=== PATIENT | female | born 1980 | race African-American/Black ===

== ENCOUNTER 2016-05-07 13:15 | Inpatient (IN) | payer OTHER ==
[2016-05-07] MEDS ORDERED: DEXTROSE 5%-LACTATED RINGERS 1,000 ML IV SCH (15:00)
[2016-05-07] MEDS ORDERED: DINOPROSTONE 10 MG VAGINAL SUPPOSITORY VG ONE (15:00)
[2016-05-07] MEDS ORDERED: BUTORPHANOL TARTRATE 1 MG/ML VIAL IVPB ONE (15:00)
[2016-05-07 15:08] VITALS: BMI 27.6
[2016-05-07] MEDS ORDERED: ONDANSETRON 4 MG/2 ML VIAL IVPB PRN (15:39)
[2016-05-07] MEDS ORDERED: D5W-LR W/ 20 UNITS OXYTOCIN 1,000 ML IV SCH (15:45)
--- NOTE | 2016-05-07 15:51 | HP ---
Past Medical History - Primary Care Physician PCP:: Paz Martell - Admission Chief Complaint: Rh sensitization at 37 weeks for delivery as per MFM History of Present Illness: 36 Yo edc 05/26/16 ega 37.2 weeks AMA, rh sen admitted for induction of labor GBS positive History Source: Patient - Past Medical History ...: 4 ...Para: 3 ...Term: 3 ...: 0 ...Spon : 0 ...Induced : 0 ...Multiple Gestation: 0 ...LMP: 08/19/15 ... Weeks Gestation by Dates: 37.2 ...EDC by Dates: 05/26/16 ...EDC by Sono: 05/26/16 - Past Surgical History Past Surgical History: Yes: None Hx Myomectomy: No Hx Transabdominal Cerclage: No - Smoking History Smoking history: Never smoked Have you smoked in the past 12 months: No - Alcohol/Substance Use Hx Alcohol Use: No History of Substance Use: reports: None - Social History Usual Living Arrangement: Yes: With Spouse History of Recent Travel: Yes Home Medications - Allergies Allergies/Adverse Reactions: Allergies Allergy/AdvReac Type Severity Reaction Status Date / Time No Known Allergies Allergy Verified 05/07/16 14:32 - Home Medications Home Medications: Ambulatory Orders Ferrous Sulfate [Feosol] 325 mg PO DAILY 05/07/16 Vit/Iron Fumarate/FA [ Tablet] 1 each PO DAILY 05/07/16 Review of Systems - Review of Systems Constitutional: reports: No Symptoms Eyes: reports: No Symptoms HENT: reports: No Symptoms Neck: reports: No Symptoms Cardiovascular: reports: No Symptoms Respiratory: reports: No Symptoms Gastrointestinal: reports: No Symptoms Genitourinary: reports: No Symptoms Breasts: reports: No Symptoms Reported Musculoskeletal: reports: No Symptoms Integumentary: reports: No Symptoms Neurological: reports: No Symptoms Endocrine: reports: No Symptoms Hematology/Lymphatic: reports: No Symptoms Psychiatric: reports: No Symptoms Physical Exam - Maternity Vital Signs: Vital Signs Temperature 97.7 F 05/07/16 13:30 Pulse Rate 117 H 05/07/16 13:30 Respiratory Rate 18 05/07/16 13:30 Blood Pressure 117/56 05/07/16 13:30 O2 Sat by Pulse Oximetry (%) Constitutional: Yes: Well Nourished, No Distress Neck: Yes: WNL Cardiovascular: Yes: WNL, Regular Rate and Rhythm Lungs: Clear to auscultation Breast(s): Yes: WNL - Abdominal Exam/OB Fundal Height: 37 Number of Fetuses: Single Presentation: Vertex Contractions: No Heart Rate Location: [facility] Category: I Decelerations: None - Vaginal Exam/OB Dilatation (cm): 1-2 cm Effacement (%): 70 Amniotic Membrane Status: Intact Presentation: Vertex/Position Station: -2 - Physical Exam Musculoskeletal: Yes: WNL Extremities: Yes: WNL Edema: No Integumentary: Yes: WNL Hemorrhage Risk Assessment - Risk Factors Medium Risk Factors: Yes: None High Risk Factors: Yes: None Risk Score: 1 Risk Level: Medium Risk Problem List - Problems (1) Rh sensitization Code(s): O36.0990 - MATERNAL CARE FOR OTH RHESUS ISOIMMUN, UNSP TRIMESTER, UNSP Assessment/Plan IUP at 37.2 weeks high risk preg rh sensitation GBS positive Plan cervidil IV abs
[2016-05-07 16:00] LABS: BASOPHIL 0.7 % (0-2.0); EOSINOPHIL 1.4 % (0-4.5); MCH 29.7 pg (25.7-33.7); MCHC 33.2 g/dl (32.0-36.0); MEAN CELL VOLUME 89.2 fl (80-96); NEUTROPHILS 66.3 % (42.8-82.8); PLATELET COUNT 264 K/MM3 (134-434); WHITE BLOOD COUNT 6.9 K/mm3 (4.0-10.0)
[2016-05-07] MEDS ORDERED: TUBERCULIN PPD 5 TU/0.1ML SYRINGE (IN PATIENT USE ONLY) ID ONE (16:00)
[2016-05-07 16:24] LABS: CALCIUM 9.3 mg/dL (8.5-10.1); CREATININE 0.6 mg/dL (0.55-1.02)
[2016-05-07 16:28] LABS: INR 1.09 (0.82-1.09)
[2016-05-07 16:30] LABS: ACTIVATED PTT 29.7 SECONDS (26.9-34.4)
[2016-05-07] MEDS ORDERED: AMPICILLIN - 100 ML IVPB ONE (17:00)
[2016-05-07] MEDS ORDERED: PROMETHAZINE HCL 25 MG/1 ML VIAL IVPB ONE (19:30)
--- NOTE | 2016-05-07 20:10 | PN ---
Ante-Partal Exam - Subjective Subjective: Pt with c/o pain Vital Signs: Vital Signs Temperature 98.1 F 05/07/16 18:00 Pulse Rate 87 05/07/16 19:57 Respiratory Rate 18 05/07/16 19:57 Blood Pressure 115/69 05/07/16 19:57 O2 Sat by Pulse Oximetry (%) Bleeding: No Headache: No Visual changes: No Right upper quadrant pain: No - Contractions Contractions: Yes Regularity: Regular Intensity: Moderate Monitor Mode: External - Exam during Labor Heart Rate: 150 Category: I Monitor Accelerations: Present Monitor Decelerations: None Exam: Vaginal Dilatation (cm): 3 cm Effacement (%): 80 Amniotic Membrane Status: Intact Presentation: Vertex Station: -2 - Intrapartum Hemorrhage Risk Risk Score: 1 Risk Level: Medium Risk - Assessment/Plan Assessment/Plan: iup at 37 week rh sensitization AMA GBS positive Plan continue cervidil
[2016-05-07] MEDS: AMPICILLIN - 100 ML IVPB SCH (22:00)
[2016-05-07] MEDS ORDERED: ELECTROLYTE-148 SOLN 500 ML IV SCH (22:15)
[2016-05-07] MEDS ORDERED: ELECTROLYTE-148 SOLN 500 ML IV ONE (22:45)
[2016-05-07] MEDS ORDERED: ELECTROLYTE-148 SOLN 1,000 ML IV SCH (23:15)
[2016-05-07] MEDS ORDERED: FENTANYL/BUPIVACAINE/NS/PF - PCEA - 50 ML DISP.SYRIN EP SCH (23:45)
[2016-05-08] MEDS ORDERED: OXYTOCIN 15 UNITS/ LR 250 ML 250 ML IVPB SCH (00:45)
--- NOTE | 2016-05-08 00:45 | PN ---
Ante-Partal Exam - Subjective Subjective: Pt s/p epidural Pt feeling better Vital Signs: Vital Signs Temperature 97.8 F 05/08/16 00:00 Pulse Rate 91 H 05/08/16 00:15 Respiratory Rate 20 05/08/16 00:15 Blood Pressure 95/48 05/08/16 00:15 O2 Sat by Pulse Oximetry (%) 100 05/08/16 00:15 Bleeding: No Headache: No Visual changes: No Right upper quadrant pain: No - Contractions Contractions: Yes Regularity: Coupling Intensity: Mild Monitor Mode: External - Exam during Labor Variability: Minimal Heart Rate Location: [facility] Category: I Monitor Accelerations: Present Monitor Decelerations: None Exam: Vaginal Dilatation (cm): 3 cm Effacement (%): 80 Amniotic Membrane Status: Ruptured Amniotic Fluid: Blood Stained Presentation: Vertex Station: -2 - Assessment/Plan Assessment/Plan: iup at 37 weeks rh sensitization induction plan pitocin anticipate vaginal delivery
[2016-05-08] MEDS: AMPICILLIN - 100 ML IVPB SCH ×2 (01:30→05:34)
[2016-05-08] MEDS: D5W-LR W/ 20 UNITS OXYTOCIN 1,000 ML IV SCH ×2 (03:00→07:39)
[2016-05-08] MEDS ORDERED: BENZOCAINE 28 GM HEMORRHOIDAL OINTMENT TP PRN (03:25)
[2016-05-08] MEDS ORDERED: WITCH HAZEL 50% (TUCKS) 40 PAD/JAR PAD TP PRN (03:25)
[2016-05-08] MEDS ORDERED: BISACODYL 10 MG SUPP.RECT RC PRN (03:25)
[2016-05-08] MEDS ORDERED: METHYLERGONOVINE MALEATE 0.2 MG/1 ML AMP IM PRN (03:25)
[2016-05-08] MEDS ORDERED: BENZOCAINE 20% 57 GM BOTTLE TP PRN (03:25)
--- NOTE | 2016-05-08 03:28 | PN ---
Delivery - Delivery Vaginal Delivery: No Problems (Live female delivered in OA position Nuchal x 1 perineum intact 6lbs 3 oz) Episiotomy/Laceration: None EBL (cc): 250 (Mirena iud placed without complications) Delivery, Single - Stages of Labor Placenta: Yes: Spontaneous - Condition of Infant Infant Gender: Female Position: OA - [place] Feeding Plan Initial Plan: Elected not to breastfeed exclusively throughout hospitalization
[2016-05-08 03:39] LABS: ARTERIAL BLD GAS O2 SATURATION 58.2 % (90-98.9); ARTERIAL BLOOD GAS BASE EXCESS 0.2 meq/l (-2-2)
[2016-05-08 03:41] LABS: ARTERIAL BLOOD GAS HCO3 26.5 meq/L (22-26); ARTERIAL BLOOD GAS PO2 28.6 mmHg (80-100)
[2016-05-08 03:42] LABS: ARTERIAL BLOOD GAS pH 7.33 (7.35-7.45)
[2016-05-08 03:45] LABS: VENOUS BLOOD GAS HCO3 24.8 meq/L (22-29); VENOUS PH 7.38 (7.31-7.41)
[2016-05-08] MEDS: IBUPROFEN 600 MG TABLET (FP) PO PRN ×3 (07:37→20:59)
[2016-05-08] MEDS: ACETAMINOPHEN 325 MG TABLET (FP) PO PRN ×3 (07:38→20:59)
[2016-05-08 08:41] LABS: BASOPHIL 0.4 % (0-2.0); EOSINOPHIL 0.7 % (0-4.5); MCH 29.4 pg (25.7-33.7); MCHC 33.1 g/dl (32.0-36.0); MEAN CELL VOLUME 88.9 fl (80-96); NEUTROPHILS 73.6 % (42.8-82.8); PLATELET COUNT 241 K/MM3 (134-434); WHITE BLOOD COUNT 10.6 K/mm3 (4.0-10.0)
[2016-05-08 08:53] LABS: INR 1.1 (0.82-1.09); PROTHROMBIN TIME (PATIENT) 12.1 SEC (9.98-11.88)
[2016-05-08 09:25] LABS: CREATININE 0.6 mg/dL (0.55-1.02)
[2016-05-09 08:52] LABS: BASOPHIL 0.7 % (0-2.0); EOSINOPHIL 2.8 % (0-4.5); MCH 29.6 pg (25.7-33.7); MCHC 33.1 g/dl (32.0-36.0); MEAN CELL VOLUME 89.5 fl (80-96); MEAN PLT VOLUME 9.3 fl (7.5-11.1); PLATELET COUNT 197 K/MM3 (134-434); WHITE BLOOD COUNT 7.7 K/mm3 (4.0-10.0)
[2016-05-09] MEDS: ACETAMINOPHEN 325 MG TABLET (FP) PO PRN ×2 (09:03→18:08)
[2016-05-09] MEDS: IBUPROFEN 600 MG TABLET (FP) PO PRN ×2 (09:04→18:07)
[2016-05-09] MEDS ORDERED: INFLUENZA VACCINE 45 MCG/0.5 ML (MDV 16-17) IM ONE (10:00)
[2016-05-09] MEDS ORDERED: VACCINE 60 MCG/0.5 ML (P/F DISP.SYRIN 16-17) IM ONE (10:00)
--- NOTE | 2016-05-09 14:11 | PN ---
Post Note - Post Date of Delivery: 05/08/16 Vital Signs: Vital Signs - 24 hr 05/08/16 05/08/16 05/09/16 18:00 22:00 02:00 Temperature 99.1 F 98.0 F 98.1 F Pulse Rate 67 82 61 Respiratory 20 18 18 Rate Blood Pressure 116/74 121/71 129/67 05/09/16 10:00 Temperature 98.3 F Pulse Rate 82 Respiratory 20 Rate Blood Pressure 113/70 Labs: Laboratory Results - last 24 hr 05/07/16 05/08/16 05/09/16 15:20 08:15 07:50 WBC 7.7 RBC 3.35 L Hgb 9.9 L Hct 29.9 L MCV 89.5 MCHC 33.1 RDW 14.0 Plt Count 197 MPV 9.3 Neutrophils % 52.0 D Lymphocytes % 35.2 D Monocytes % 9.3 Eosinophils % 2.8 D Basophils % 0.7 RPR Titer Nonreactive Nonreactive - Subjective Subjective: No Complaints - Objective Afebrile: Yes Breast: Not engorged Abdomen: Soft, Non-tender Uterus: Fundus firm, Non-tender Vagina: Scant lochia Extremities: Non-tender - Assessment/Plan (1) Rh sensitization Assessment: S/P Normal Plan: Routine Care
[2016-05-09] MEDS ORDERED: SENNOSIDES/DOCUSATE COMBO (SENNA PLUS) TABLET (UD) PO PRN (22:00)
[2016-05-10] MEDS: ACETAMINOPHEN 325 MG TABLET (FP) PO PRN (01:03)
[2016-05-10] MEDS: IBUPROFEN 600 MG TABLET (FP) PO PRN (01:04)
[2016-05-10 09:39] VITALS: BP 114/64; PULSE 61; TEMP 97.7
--- NOTE | 2016-05-10 11:36 | DS ---
Physical Exam-FRUIT II FARMWORKER Vital Signs: Vital Signs Temperature 97.7 F 05/10/16 09:38 Pulse Rate 61 05/10/16 09:38 Respiratory Rate 20 05/10/16 09:38 Blood Pressure 114/64 05/10/16 09:38 O2 Sat by Pulse Oximetry (%) 100 05/08/16 04:00 Constitutional: Yes: Well Nourished, No Distress Gastrointestinal: Yes: WNL, Normal Bowel Sounds, Soft ....Post : Yes: Uterus firm, Uterus non-tender Neurological: Yes: WNL, Alert, Oriented Labs: CBC, BMP 05/09/16 07:50 05/08/16 08:15 Delivery - Delivery Vaginal Delivery: No Problems (Live female infant delivered in OA position Nuchal x 1 perineum intact 6lbs 3 oz) Type of Anesthesia: Epidural Episiotomy/Laceration: None EBL (cc): 250 (Mirena iud placed without complications) Delivery, Single - Stages of Labor Date 1st Stage Initiatied: 05/07/16 Time 1st Stage Initiated: 19:00 Date 2nd Stage Initiated: 05/08/16 Time 2nd Stage Initiated: 02:30 Date of Delivery: 05/08/16 Time of Delivery: 02:57 Time Placenta Delivered: 03:00 Placenta: Yes: Spontaneous - 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 - 1 Minute Total Score: 8 5 Minutes Total Score: 9 - [place] Feeding Plan Initial Plan: Elected not to breastfeed exclusively throughout hospitalization Discharge Summary Reason For Visit: CERVICAL INDUCTION Current Active Problems Rh sensitization (Acute) Procedures: Principal: normal vaginal delivery Hospital Course: unremarkable Condition: Good - Instructions Diet, Activity, Other Instructions: Physical activity Resume your normal everyday activity as tolerated no heavy lifting or exercise until seen by your surgeon. You may walk unlimited deena of and climb stairs. You may resume driving the car when you feel safe and comfortable behind the wheel. No sexual activity as instructed. Wound care If you have a bandage, leave it on, and keep dry for 48-72 hours. After that time discard the outer bandage. If they are tapes on the skin under the out of bandage leave them in place. They will peel off in the next 7 to 10 days. Do Not Peel them off. You may shower the day after surgery. If there are tapes present on the skin, you may shower over them. Diet There are no dietary restrictions. Eat healthy, high-fiber foods. Drink 6 to 8 glasses of liquid each day. This will assist in keeping your bowels are regular. Pain management You may take Tylenol or acetaminophen or Ibuprofen (for example, Motrin, Advil etc.) from my pain prescription medication is ordered should be taken as prescribed for moderate to severe pain. Call MD for any of the following: Severe pain not relieved by medication Fever of 101 or higher Excessive bleeding or drainage on dressing Inability to urinate Referrals: Paz Martell MD [Staff Physician] - Disposition: HOME - Home Medications Comprehensive Discharge Medication List: Ambulatory Orders Ferrous Sulfate [Feosol] 325 mg PO DAILY 05/07/16 Vit/Iron Fumarate/FA [ Tablet] 1 each PO DAILY 05/07/16 Ibuprofen [Motrin -] 600 mg PO QID PRN #28 tablet 05/10/16
== END 2016-05-10 14:15 | disposition home or self-care (01) | DRG 560 ==
LOC: JLDR 13:15 → J3W 05-08 04:55
PROVIDERS: ADMIT Obstetrics & Gynecology; ATTEND Obstetrics & Gynecology
PROC: 10E0XZZ Delivery of Products of Conception, External Approach (ICD-10-PCS; principal; 2016-05-08)
DX: O09.523 Supervision of elderly multigravida, third trimester (principal); Z22.330 Carrier of Group B streptococcus; Z3A.37 37 weeks gestation of pregnancy; O36.0930 Maternal care for other rhesus isoimmunization, third trimester, not applicable or unspecified; Z37.0 Single live birth
CPT/HCPCS: 36415; 36600; 59409; 80048; 82803; 85025; 85461; 85610; 85730; 86593; 86762; 86850; 86870; 86900; 86901; 86902; 87340

== ENCOUNTER 2017-06-30 16:58 | Emergency (ER) | payer OTHER ==
[2017-06-30 17:22] VITALS: BP 103/61; PULSE 66; TEMP 98.1; BMI 22.8
--- NOTE | 2017-06-30 17:24 | PDOC ---
Rapid Medical Evaluation Time Seen by Provider: 06/30/17 17:19 Medical Evaluation: Allergies Allergy/AdvReac Type Severity Reaction Status Date / Time No Known Allergies Allergy Verified 05/07/16 14:32 06/30/17 17:19 The patient presents with a chief complaint of: Neck pain for 2-3 days. Feels like her neck is swollen. States it hurts to move her neck side to side. I have performed a brief in-person evaluation of this patient; Pertinent physical exam findings: ambulatory, in no respiratory distress. (+) LAD R cervical chain. Decreased ROM of neck I have ordered the following: Rapid strep The patient will proceed to the ED for further evaluation.
--- NOTE | 2017-06-30 18:33 | PDOC ---
History of Present Illness - General Chief Complaint: Head/Neck problem Stated Complaint: NECK PAIN Time Seen by Provider: 06/30/17 17:19 History Source: Patient Exam Limitations: No Limitations - History of Present Illness Initial Comments: 06/30/17 18:36 Patient came for evaluation of sore throat pain for a few days. Denies fever, denies URI symptoms, no one else at home is sick. Is a hairdresser. States with approximately one and half years ago, was noted to have hyperthyroid enlarged thyroid. Was evaluated by "across a street" and was told that her numbers were normal. Did not have any follow-up. States since that time has had intermittent throat pain and now noticed an increasingly enlarged neck and glands. Denies recent weight loss or gain, denies any here issue, states menses Had never been normal 06/30/17 18:36 Timing/Duration: unsure Modifying Factors: improves with: other Associated Symptoms: reports: denies symptoms, malaise. denies: chest pain, cough, fever/chills, headaches Past History - Travel Traveled outside of the country in the last 30 days: No Close contact w/someone who was outside of country & ill: No - Past Medical History Allergies/Adverse Reactions: Allergies Allergy/AdvReac Type Severity Reaction Status Date / Time No Known Allergies Allergy Verified 06/30/17 17:19 Home Medications: Ambulatory Orders NK [No Known Home Medication] 06/30/17 Asthma: No Cancer: No Cardiac Disorders: No COPD: No Diabetes: No HTN: No Seizures: No Thyroid Disease: No Other medical history: DENIES. - Reproductive History (#): 3 Para: 3 Cervical CA: No Dysfunctional Uterine Bleeding: No Ectopic : No Endometrial CA: No Polycystic Ovaries: No Therapeutic (s) & number: No Tubal Ligation: No Spontaneous : 0 - Suicide/Smoking/Psychosocial Hx Smoking History: Never smoked Have you smoked in the past 12 months: No Hx Alcohol Use: No Drug/Substance Use Hx: No Hx Substance Use Treatment: No Review of Systems - Review of Systems Able to Perform ROS?: Yes Is the patient limited Malay proficient: Yes Constitutional: Yes: Symptoms Reported, See HPI, Malaise. No: Fever, Loss of Appetite Integumentary: Yes: Symptoms Reported Neurological: Yes: See HPI. No: Symptoms reported, Headache All Other Systems: Reviewed and Negative *Physical Exam - Vital Signs Last Vital Signs Temp Pulse Resp BP Pulse Ox 98.1 F 66 17 103/61 100 06/30/17 17:19 06/30/17 17:19 06/30/17 17:19 06/30/17 17:19 06/30/17 17:19 - Physical Exam General Appearance: Yes: Nourished, Appropriately Dressed, Apparent Distress, Mild Distress HEENT: positive: [place], TMs Normal, Pharynx Normal Neck: positive: Tender (rest, swelling, exudate. Tonsils are not enlarged), Supple, Tender lateral (patient has grossly enlarged thyroid gland with palpable bruit, left aspect is also enlarged but not as tender as right side. No palpable nodules) Respiratory/Chest: positive: Lungs Clear, Normal Breath Sounds Gastrointestinal/Abdominal: positive: Soft. negative: Tender Extremity: positive: Normal Capillary Refill, Normal Inspection Integumentary: positive: Normal Color, Dry, Warm, Pale ED Treatment Course - LABORATORY CBC & Chemistry Diagram: 06/30/17 18:30 06/30/17 18:30 - ADDITIONAL ORDERS Additional order review: 06/30/17 17:35 Group A Strep Rapid Antigen - Final Throat *DC/Admit/Observation/Transfer Diagnosis at time of Disposition: Thyroid dysfunction - Discharge Dispostion Disposition: HOME Condition at time of disposition: Stable Admit: No - Referrals Referrals: Denice Pollard MD [Staff Physician] - - Patient Instructions Printed Discharge Instructions: DI for Hypothyroidism Additional Instructions: Call and make appointment for private physician Recommend evaluation by supervisor felting - Post Discharge Activity Forms/Work/School Notes: Back to Work
[2017-06-30] MEDS ORDERED: IBUPROFEN 600 MG TABLET (FP) PO ONE ×2 (18:35→18:37)
[2017-06-30 18:43] LABS: BASO % 1.2 % (0-2.0); HEMATOCRIT 31.4 % (32.4-45.2); HEMOGLOBIN 10.5 GM/dL (10.7-15.3); LYMPH % 38.9 % (8-40); MCH 29.6 pg (25.7-33.7); MCHC 33.6 g/dl (32.0-36.0); MEAN CELL VOLUME 88.2 fl (80-96); MEAN PLT VOLUME 8.6 fl (7.5-11.1); MONO % 9.6 % (3.8-10.2); NEUT % 46.3 % (42.8-82.8); PLATELET COUNT 346 K/MM3 (134-434); RBC 3.56 M/mm3 (3.60-5.2); RDW 13.5 % (11.6-15.6); WHITE BLOOD COUNT 5.5 K/mm3 (4.0-10.0)
[2017-06-30 19:12] LABS: ALBUMIN 3.7 g/dl (3.4-5.0); ANION GAP 4 (8-16); BILIRUBIN,TOTAL 0.2 mg/dL (0.2-1.0); BLOOD UREA NITROGEN 10 mg/dL (7-18); CALCIUM 8.9 mg/dL (8.5-10.1); CHLORIDE 106 mmol/L (98-107); CO2 29 mmol/L (21-32); CREATININE 0.6 mg/dL (0.55-1.02); GLUCOSE,RANDOM 87 mg/dL (74-106); POTASSIUM 4.2 mmol/L (3.5-5.1); SGOT/AST 10 U/L (15-37); SGPT/ALT 12 U/L (12-78); SODIUM 139 mmol/L (136-145); TOT PROT 7.3 g/dl (6.4-8.2)
[2017-06-30 19:21] LABS: ALK PHOS 49 U/L (45-117)
== END 2017-06-30 19:48 | disposition home or self-care (01) ==
LOC: JERFT 16:58
DX: E04.9 Nontoxic goiter, unspecified (principal)
CPT/HCPCS: 36415; 80053; 84436; 84443; 84479; 85025; 87070; 87430; 99281-25

== ENCOUNTER 2018-05-10 13:20 | Emergency (ER) | payer OTHER ==
[2018-05-10 14:11] VITALS: BP 120/73; PULSE 72; TEMP 98; BMI 25.8
[2018-05-10] MEDS ORDERED: ACETAMINOPHEN/CAFFEINE/BUTALBITAL 1 TAB PO ONE (15:52)
--- NOTE | 2018-05-10 15:52 | PDOC ---
History of Present Illness - General Chief Complaint: Headache Stated Complaint: HEADACHE Time Seen by Provider: 05/10/18 15:40 History Source: Patient Exam Limitations: Clinical Condition - History of Present Illness Initial Comments: 05/10/18 16:00 Patient with no significant past medical history present with complaining of left-sided headache, pressure behind left ear , nasal congestion and left eye which is intermittent. Patient reported popping sensation left ear. Patient denies dizziness, blurry vision, change in vision, lightheadedness or photosensitivity patient denies spinning sensation. Patient also reported occasional cramps in left upper extremity and lower extremity for 3 days. Denies nausea or vomiting. Denies any other symptoms 05/10/18 16:03 Timing/Duration: reports: waxing and waning, other (2 days) Past History - Past Medical History Allergies/Adverse Reactions: Allergies Allergy/AdvReac Type Severity Reaction Status Date / Time No Known Allergies Allergy Verified 05/10/18 14:08 Home Medications: Ambulatory Orders Butalb/Acetaminophen/Caffeine [Fioricet 50-300-40 mg Capsule] 1 each PO Q6H PRN #20 capsule 05/10/[address] [place] 2 spray NS BID PRN #1 spray 05/10/18 Methylprednisolone [Medrol Dose Dejon] 4 mg PO ASDIR #21 tablet 05/10/18 Asthma: No Cancer: No Cardiac Disorders: No COPD: No Diabetes: No HTN: No Seizures: No Thyroid Disease: Yes - Reproductive History (#): 3 Para: 3 Cervical CA: No Dysfunctional Uterine Bleeding: No Ectopic : No Endometrial CA: No Polycystic Ovaries: No Therapeutic (s) & number: No Tubal Ligation: No Spontaneous : 0 - Immunization History Immunization Up to Date: Yes - Suicide/Smoking/Psychosocial Hx Smoking History: Never smoked Have you smoked in the past 12 months: No Hx Alcohol Use: No Drug/Substance Use Hx: No Hx Substance Use Treatment: No Neuro Specific PMHX - Complaint Specific PMHX Glaucoma: No Herniated Disk: No Laminectomy: No Migraine: No Multiple Sclerosis: No Neuropathy: No TIA: No Review of Systems - Review of Systems Able to Perform ROS?: Yes Is the patient limited Kyrgyz proficient: No Constitutional: No: Chills, Fever, Malaise, Weakness HEENTM: Yes: Symptoms Reported, See HPI, Nose Congestion. No: Eye Pain, Blurred Vision, Tearing, Recent change in vision, Double Vision, Cataracts, Ear Pain, Ocular Prothesis, Ear Discharge, Nose Pain, Tinnitus, Nose Bleeding, Hearing Loss, Throat Pain, Throat Swelling, Mouth Pain, Dental Problems, Difficulty Swallowing, Mouth Swelling, Other Respiratory: No: Symptoms reported, See HPI, Cough, Orthopnea, Shortness of Breath, SOB with Exertion, SOB at Rest, Stridor, Wheezing, Productive cough, Hemoptysis, Other Cardiac (ROS): No: Symptoms Reported, See HPI, Chest Pain, Edema, Irregular Heart Rate, Lightheadedness, Palpitations, Syncope, Chest Tightness, Other ABD/GI: No: Nausea, Vomiting, Abdominal cramping Neurological: Yes: See HPI, Headache, Tingling (occasional in LUE/LLE). No: Numbness, Paresthesia, Weakness, Dizziness All Other Systems: Reviewed and Negative *Physical Exam - Vital Signs Last Vital Signs Temp Pulse Resp BP Pulse Ox 98.0 F 72 18 120/73 100 05/10/18 14:08 05/10/18 14:08 05/10/18 14:08 05/10/18 14:08 05/10/18 14:08 - Physical Exam Comments: 05/10/18 16:03 GENERAL: Well developed, well nourished. Awake and alert. No acute distress. HEENT: b/l nasal congestion. External ears canals normal bilateral. Tympanic membrane normal bilateral. Normocephalic, atraumatic. PERRLA, EOMI. No conjunctival pallor. Sclera are non- icteric. Moist mucous membranes. Oropharynx is clear. NECK: Supple. Full ROM. No JVD. Carotid pulses 2+ and symmetric, without bruits. No thyromegaly. No lymphadenopathy. CARDIOVASCULAR: Regular rate and rhythm. No murmurs, rubs, or gallops. Distal pulses are 2+ and symmetric. PULMONARY: No evidence of respiratory distress. Lungs clear to auscultation bilaterally. No wheezing, rales or rhonchi. ABDOMINAL: Soft. Non-tender. Non-distended. No rebound or guarding. No organomegaly. Normoactive bowel sounds. MUSCULOSKELETAL Normal range of motion at all joints. EXTREMITIES: No cyanosis. No clubbing. No edema. SKIN: Warm and dry. Normal capillary refill. No rashes. No jaundice. NEUROLOGICAL: Alert, awake, appropriate. Cranial nerves 2-12 intact. normal tandem walking. 20 /20 visual acuity in B/L eyes. Normal speech. Toes are down-going bilaterally. Gait is normal without ataxia. normal finger to nose-hand cordination PSYCHIATRIC: Cooperative. Good eye contact. Appropriate mood and affect. General Appearance: Yes: Nourished, Appropriately Dressed. No: Apparent Distress Moderate Sedation - Procedure Monitoring Vital Signs: Procedure Monitoring Vital Signs Temperature 98.0 F 05/10/18 14:08 Pulse Rate 72 05/10/18 14:08 Respiratory Rate 18 05/10/18 14:08 Blood Pressure 120/73 05/10/18 14:08 O2 Sat by Pulse Oximetry (%) 100 05/10/18 14:08 Medical Decision Making - Medical Decision Making 05/10/18 16:07 Patient with no significant past medical history present with complaining of left-sided headache, pressure behind left ear , nasal congestion and left eye which is intermittent. Patient reported popping sensation left ear. Patient denies dizziness, blurry vision, change in vision, lightheadedness or photosensitivity patient denies spinning sensation. Patient also reported occasional cramps in left upper extremity and lower extremity for 3 days. Clinical is unremarkable with normal neuro exam and ophthalmic exam. Normal visual acuity exam. Symptoms likely sinusitis causing headaches. fioricet one tablet given for headache. Observe for 20 minutes and reassess 05/10/18 17:02 Patient report mild improvement with fioricet and deacron PO. Patient stable for discharge on medrol-dejon and atrovent nasal spray for sinusitis and fioricet as needed for VAZQUEZ with neurology follow-up *DC/Admit/Observation/Transfer Diagnosis at time of Disposition: Otalgia of left ear Sinusitis Qualifiers: Sinusitis location: frontal Chronicity: acute Recurrence: non-recurrent Qualified Code(s): J01.10 - Acute frontal sinusitis, unspecified Headache Qualifiers: Headache type: cluster Headache chronicity pattern: episodic headache Intractability: not intractable Qualified Code(s): G44.019 - Episodic cluster headache, not intractable - Discharge Dispostion Disposition: HOME Condition at time of disposition: Stable Decision to Admit order: No - Prescriptions Prescriptions: Butalb/Acetaminophen/Caffeine [Fioricet 50-300-40 mg Capsule] 1 each PO Q6H PRN #20 capsule PRN Reason: headache Ipratropium [place] 2 spray NS BID PRN #1 spray PRN Reason: nasal congestion Methylprednisolone [Medrol Dose Dejon] 4 mg PO ASDIR #21 tablet - Referrals Referrals: Efrain Camacho MD [Staff Physician] - - Patient Instructions Printed Discharge Instructions: Cluster Headache, DI for Sinusitis Additional Instructions: Take medications as prescribed. Follow-up referred neurology as needed if symptoms persist for more than 3 days - Post Discharge Activity
[2018-05-10] MEDS ORDERED: ACETAMINOPHEN/CAFFEINE/BUTALBITAL 1 TAB ONE (15:55)
[2018-05-10] MEDS ORDERED: DEXAMETHASONE LIQUID 0.5 MG/5 ML 240 ML BULK BOTTLE PO ONE (16:39)
[2018-05-10] MEDS ORDERED: DEXAMETHASONE SOD PHOSPHATE 10 MG/1 ML VIAL ONE (16:42)
== END 2018-05-10 16:59 | disposition home or self-care (01) ==
LOC: JERFT 13:20
DX: J01.10 Acute frontal sinusitis, unspecified (principal); G44.019 Episodic cluster headache, not intractable; H92.02 Otalgia, left ear
CPT/HCPCS: 99281-25

== ENCOUNTER 2021-05-22 16:49 | Emergency (ER) | payer OTHER ==
[2021-05-22 17:13] VITALS: BP 117/79; PULSE 66; TEMP 97.8; BMI 25.1
[2021-05-22] MEDS ORDERED: KETOROLAC TROMETHAMINE 30 MG/1 ML VIAL IM ONE (17:51)
[2021-05-22] MEDS ORDERED: KETOROLAC TROMETHAMINE 30 MG/1 ML VIAL ONE (18:13)
[2021-05-22] MEDS ORDERED: IBUPROFEN 400 MG TABLET (FP) PO ONE ×3 (18:23→18:59)
== END 2021-05-22 19:45 | disposition home or self-care (01) ==
LOC: JERFT 16:49
DX: M54.50 Low back pain, unspecified (principal); M54.2 Cervicalgia; M25.562 Pain in left knee; V49.40XA Driver injured in collision with unspecified motor vehicles in traffic accident, initial encounter
CPT/HCPCS: 72040-TC; 72100-TC-FY; 73560-TC-LT-FY; 99284-25